=== PATIENT | female | born 1965 | race American Indian/Alaskan Native ===

== ENCOUNTER 2024-07-12 12:43 | Emergency (ER) | payer MEDICAID, OTHER ==
[2024-07-12 13:07] VITALS: BP 96/65; PULSE 122
[2024-07-12] MEDS ORDERED: Sodium Chloride 0.9% 10 ML Syringe FLUSH PRN (13:27)
[2024-07-12 13:28] LABS: HEMATOCRIT 27.1 % (37.0-47.0); HEMOGLOBIN 9.4 g/dL (12.0-16.0); IMMATURE GRAN ABSOLUTE AUTO 0.01 10^3/uL (0.00-0.49); IMMATURE GRAN PERCENT AUTO 0.2 % (0.0-4.9); LYMPHOCYTES ABSOLUTE AUTO 1.68 10^3/uL (0.60-5.00); LYMPHOCYTES PERCENT AUTO 28.2 % (24-44); MEAN CORPUSCULAR HEMOGLOBIN 36.9 pg (27.0-32.0); MEAN CORPUSCULAR HGB CONC 34.7 g/dL (32.0-36.0); MEAN CORPUSCULAR VOLUME 106.3 fL (83.0-97.0); MONOCYTES ABSOLUTE AUTO 0.77 10^3/uL (0.00-1.50); MONOCYTES PERCENT AUTO 12.9 % (0-10); NEUTROPHILS PERCENT AUTO 58.7 % (41-71); PLATELET COUNT,PLT 201 10^3/uL (150-400); RED BLOOD CELL COUNT 2.55 x10^6/uL (4.00-5.50)
[2024-07-12 13:41] LABS: ALBUMIN 1.6 g/dL (3.4-5.0); BILIRUBIN TOTAL 1.6 mg/dL (0.0-1.0); C-REACTIVE PROTEIN 3.64 mg/dL (<=0.50); CALCIUM 8.7 mg/dL (8.4-10.1); CREATININE 1.5 mg/dL (0.6-1.0); EST CRCL DRUG DOSING (CG) 35.3 mL/min; POTASSIUM,K 5.2 mEq/L (3.5-5.0); PROTEIN TOTAL,TP 6.6 g/dL (6.4-8.2)
[2024-07-12] MEDS: Sodium Chloride 0.9% 1,000 ML IV SCH (14:05)
[2024-07-12 14:08] LABS: APPEARANCE,URINE SLIGHTLY CLOUDY (CLEAR); COLOR,URINE AMBER (YELLOW); GLUCOSE,URINE NEGATIVE (NEGATIVE); KETONES,URINE TRACE mg/dL (NEGATIVE); LEUKOCYTE ESTERASE,URINE NEGATIVE (NEGATIVE); NITRITE,URINE NEGATIVE (NEGATIVE); OCCULT BLOOD,URINE NEGATIVE (NEGATIVE); PH,URINE 5.5 (4.5-8.0); PROTEIN,URINE 30 mg/dL (NEGATIVE)
[2024-07-12 14:15] LABS: BILIRUBIN,URINE MODERATE (NEGATIVE)
[2024-07-12 14:16] LABS: BACTERIA,URINE OCCASIONAL /HPF (NOT SEEN); HYALINE CASTS,URINE MODERATE /LPF (NOT SEEN); RBC,URINE 0-5 /HPF (0-5); SQUAMOUS EPITHELIAL CELLS,UR FEW /HPF (NOT SEEN); WBC,URINE NOT SEEN /HPF (0-5)
[2024-07-12] MEDS: Lactulose Soln 10 GM/15 ML 30 ML UD Cup ONE (14:21)
[2024-07-12] MEDS: Lactulose Soln 10 GM/15 ML 30 ML UD Cup PO ONE (14:21)
[2024-07-13 22:41] LABS: AMMONIA 182 umol/L (6-47)
== END 2024-07-12 15:50 ==
LOC: CC.ED 12:43
DX: K76.82 Hepatic encephalopathy (principal); N17.9 Acute kidney failure, unspecified; Z87.19 Personal history of other diseases of the digestive system; Z86.73 Personal history of transient ischemic attack (TIA), and cerebral infarction without residual deficits; Z86.16 Personal history of COVID-19; Z90.49 Acquired absence of other specified parts of digestive tract; Z79.899 Other long term (current) drug therapy
CPT/HCPCS: 36415; 51702; 71045; 80053; 81001; 82140; 85025; 86140; 96360; 99284; 99285-25; A9270-GY; J7030